=== PATIENT | male | born 1985 | race Caucasian/White ===

== ENCOUNTER 2016-12-20 18:12 | Emergency (ER) | payer OTHER ==
[~2016-12-20] VITALS: Ht 193 cm; Wt 137.3 kg
[~2016-12-20 18:12] MED LIST: ACET325T51 PO; HYDR-4003 PO; IBUP200C PO; SULF1TAB7 PO
[2016-12-20 18:15] VITALS: BP 118/78; PULSE 73; RESP 14; O2SAT 99
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
--- NOTE | 2016-12-20 19:23 | DRSVH ---
PROCEDURE: X-RAY LEFT FOOT COMPLETE, MINIMUM THREE VIEWS ([id number]) INDICATIONS: nail in foot TECHNIQUE: 3 views of the foot were acquired. COMPARISON: None. FINDINGS: Bones: No fractures or dislocations. No suspicious bony lesions. Soft tissues: No tibiotalar joint effusion. Achilles tendon appears normal. No radiodense foreign b odies identified. IMPRESSION: No fracture. No osseous lesion. If there are persistent symptoms or clinical suspicion f or pathology, then repeat radiographs or advanced imaging (CT, MRI or bone scan) should be considered for further evaluation. Dictated by: Asia Roberson MD, PhD on 12/20/2016 at 19:20 Approved by: Asia Roberson MD, PhD on 12/20/2016 at 19:22
[2016-12-20] MEDS ORDERED: TdaP Vaccine 0.5 mL Inj IM ONE (20:05)
[2016-12-20] MEDS ORDERED: _Ciprofloxacin 500 mg Tablet PO SCH (20:30)
[2016-12-20 20:56] VITALS: BP 115/69; PULSE 65; RESP 20; O2SAT 98
== END 2016-12-20 20:57 | disposition home or self-care (01) ==
LOC: SED 18:12
DX: S91.332A Puncture wound without foreign body, left foot, initial encounter (principal); M79.672 Pain in left foot; W45.0XXA Nail entering through skin, initial encounter; Y93.9 Activity, unspecified; Y92.9 Unspecified place or not applicable; Y99.9 Unspecified external cause status; F17.200 Nicotine dependence, unspecified, uncomplicated; Z23 Encounter for immunization